=== PATIENT | male | born 1990 | race Caucasian/White ===

== ENCOUNTER 2017-05-06 11:31 | Emergency (ER) | payer MEDICAID ==
[~2017-05-06] VITALS: Ht 167.6 cm; Wt 63.6 kg
[2017-05-06 12:08] VITALS: BP 160/64
[2017-05-06 12:08] LABS: GLUCOSE,POINT OF CARE 118 MG/DL (70-110)
[2017-05-06] MEDS ORDERED: VENL50TA44 PO (12:08)
[2017-05-06] MEDS ORDERED: OLAN10TA3 PO (12:08)
[2017-05-06] MEDS ORDERED: ACETAMINOPHEN 325 MG TABLET PO ONE (12:15)
== END 2017-05-06 12:27 | disposition home or self-care (01) ==
LOC: EMS 11:32
DX: R23.8 Other skin changes (principal); F31.9 Bipolar disorder, unspecified; M79.671 Pain in right foot; M79.672 Pain in left foot; F41.9 Anxiety disorder, unspecified; I10 Essential (primary) hypertension; F15.10 Other stimulant abuse, uncomplicated; F12.10 Cannabis abuse, uncomplicated; F17.210 Nicotine dependence, cigarettes, uncomplicated; Z59.0 Homelessness
CPT/HCPCS: 82962; 99282; 99283; 99406

== ENCOUNTER 2018-06-30 20:57 | Emergency (ER) | payer OTHER ==
[~2018-06-30] VITALS: Ht 167.6 cm; Wt 61.4 kg
[~2018-06-30 20:57] MED LIST: BUPR100SR PO; OLAN10TA3 PO; VENL50TA44 PO
[2018-06-30 21:03] VITALS: BP 141/93
[2018-06-30] MEDS ORDERED: OLANZapine 5 MG TABLET PO ONE (21:30)
== END 2018-06-30 21:56 | disposition home or self-care (01) ==
LOC: EMS 20:59
DX: S62.102A Fracture of unspecified carpal bone, left wrist, initial encounter for closed fracture (principal); F19.90 Other psychoactive substance use, unspecified, uncomplicated; F41.9 Anxiety disorder, unspecified; F31.9 Bipolar disorder, unspecified; F17.210 Nicotine dependence, cigarettes, uncomplicated; F12.90 Cannabis use, unspecified, uncomplicated; V00.131A Fall from skateboard, initial encounter; Y93.89 Activity, other specified; Y92.89 Other specified places as the place of occurrence of the external cause; Y99.8 Other external cause status

== ENCOUNTER 2018-06-30 23:34 | Emergency (ER) | payer OTHER ==
[~2018-06-30] VITALS: Ht 167.6 cm; Wt 61.4 kg
[2018-07-01 00:04] VITALS: BP 129/68
[2018-07-01 01:36] LABS: BASOPHILS % (AUTO) 0.9 % (0.0-2.0); EOSINOPHILS % (AUTO) 2.3 % (1.0-6.0); HEMATOCRIT 43.2 % (41-53); HEMOGLOBIN 14.7 g/dL (13.5-17.5); LYMPHOCYTES # (AUTO) 2.4 K/uL (1.0-4.8); LYMPHOCYTES % (AUTO) 22.6 % (22.0-44.0); MEAN CORPUSCULAR HGB CONC 34.1 G/dL (31.0-37.0); MEAN CORPUSCULAR VOLUME 88 fL (80-100); MONOCYTES # (AUTO) 0.8 K/uL (0.1-1.0); NEUTROPHILS # (AUTO) 7.2 K/uL (1.8-7.7); NEUTROPHILS % (AUTO) 67.2 % (40.0-70.0); PLATELET COUNT (AUTO) 340 K/uL (150-450); RED BLOOD CELL COUNT(AUTO) 4.91 MIL/uL (4.50-5.90); RED CELL DISTRIBUTION WIDTH 14.7 % (11.5-14.5)
[2018-07-01 01:43] LABS: ANION GAP 12 mmol/L (8-16); CALCIUM, TOTAL 8.9 mg/dL (8.8-10.5); CARBON DIOXIDE 26 mmol/L (22-29); CHLORIDE 102 mmol/L (98-107); CREATININE 0.72 mg/dL (0.60-1.30); GLOMERULAR FILTR. RATE CALC > 60 mL/min (>60); GLUCOSE,RANDOM 81 mg/dL (70-110); POTASSIUM 3.7 mmol/L (3.5-5.1); SODIUM SERUM 140 mmol/L (136-145); UREA NITROGEN, BLOOD 13 mg/dL (7-18)
[2018-07-01 01:49] LABS: ALANINE AMINOTRANSFERASE 85 U/L (12-78); ALKALINE PHOSPHATASE 164 U/L (46-116); ASPARTATE AMINOTRANSFERASE 40 U/L (15-37); BILIRUBIN,TOTAL 1.1 mg/dL (0.1-1.0); TOTAL PROTEIN, SERUM 7.7 g/dL (6.4-8.2)
[2018-07-01] MEDS ORDERED: LORazepam 2 MG/ML VIAL IM ONE (02:00)
== END 2018-07-01 05:44 | disposition home or self-care (01) ==
LOC: EMS 23:34
DX: F31.9 Bipolar disorder, unspecified (principal); F32.9 Major depressive disorder, single episode, unspecified; F41.9 Anxiety disorder, unspecified; F17.210 Nicotine dependence, cigarettes, uncomplicated; F12.90 Cannabis use, unspecified, uncomplicated; F19.90 Other psychoactive substance use, unspecified, uncomplicated
CPT/HCPCS: 80053; 85025; 96372; 99284; G0480; J2060

== ENCOUNTER 2018-09-29 06:06 | Inpatient (IN) | payer MEDICAID, OTHER ==
[~2018-09-29] VITALS: Ht 167.6 cm; Wt 61.5 kg
[2018-09-29 07:05] LABS: ANION GAP 10 mmol/L (8-16); CALCIUM, TOTAL 9.3 mg/dL (8.8-10.5); CARBON DIOXIDE 26 mmol/L (22-29); CHLORIDE 101 mmol/L (98-107); CREATININE 0.64 mg/dL (0.60-1.30); GLOMERULAR FILTR. RATE CALC > 60 mL/min (>60); GLUCOSE,RANDOM 93 mg/dL (70-110); POTASSIUM 3.8 mmol/L (3.5-5.1); SODIUM SERUM 137 mmol/L (136-145); UREA NITROGEN, BLOOD 14 mg/dL (7-18)
[2018-09-29 07:10] LABS: EOSINOPHILS % (AUTO) 0.8 % (1.0-6.0); HEMATOCRIT 42.7 % (41-53); HEMOGLOBIN 14.7 g/dL (13.5-17.5); LYMPHOCYTES # (AUTO) 1.4 K/uL (1.0-4.8); LYMPHOCYTES % (AUTO) 17.3 % (22.0-44.0); MEAN CORPUSCULAR HEMOGLOBIN 28.9 pg (26.0-34.0); MEAN CORPUSCULAR HGB CONC 34.5 G/dL (31.0-37.0); MEAN CORPUSCULAR VOLUME 84 fL (80-100); MONOCYTES # (AUTO) 0.7 K/uL (0.1-1.0); MONOCYTES % (AUTO) 9.1 % (2.0-9.0); NEUTROPHILS # (AUTO) 5.7 K/uL (1.8-7.7); NEUTROPHILS % (AUTO) 71.8 % (40.0-70.0); PLATELET COUNT (AUTO) 329 K/uL (150-450); RED CELL DISTRIBUTION WIDTH 15.2 % (11.5-14.5)
[2018-09-29 07:12] LABS: ALANINE AMINOTRANSFERASE 169 U/L (12-78); ALBUMIN 3.9 g/dL (3.4-5.0); ALKALINE PHOSPHATASE 138 U/L (46-116); ASPARTATE AMINOTRANSFERASE 75 U/L (15-37); BILIRUBIN,TOTAL 0.4 mg/dL (0.1-1.0); TOTAL PROTEIN, SERUM 7.5 g/dL (6.4-8.2)
[2018-09-29] MEDS ORDERED: ZOLPIDEM TARTRATE 10 MG TABLET PO PRN (08:15)
[2018-09-29] MEDS ORDERED: HALOPERIDOL 5 MG TABLET PO PRN (08:15)
[2018-09-29 08:26] LABS: AMPHET/METH SCREEN,URINE POSITIVE (NEGATIVE); BARBITURATE SCREEN, URINE NEGATIVE (NEGATIVE); BENZODIAZEPINES SCREEN,URINE NEGATIVE (NEGATIVE); CANNABINOID SCREEN,URINE POSITIVE (NEGATIVE); COCAINE SCREEN,URINE NEGATIVE (NEGATIVE); METHADONE SCREEN, URINE NEGATIVE (NEGATIVE); OPIATE SCREEN,URINE NEGATIVE (NEGATIVE)
[2018-09-29] MEDS ORDERED: ACETAMINOPHEN 325 MG TABLET PO PRN ×2 (08:30→11:00)
[2018-09-29] MEDS ORDERED: IBUPROFEN 400 MG TABLET PO PRN (08:30)
[2018-09-29 08:32] LABS: PHENCYCLIDINE SCREEN,URINE NEGATIVE (NEGATIVE)
[2018-09-29 09:20] LABS: APPEARANCE,URINE CLEAR (CLEAR); BILIRUBIN,URINE NEGATIVE (NEGATIVE); GLUCOSE, URINE (UA) NEGATIVE (NEGATIVE); KETONES,URINE NEGATIVE (NEGATIVE); LEUKOCYTE ESTERASE ,URINE NEGATIVE (NEGATIVE); NITRATE,URINE NEGATIVE (NEGATIVE); OCCULT BLOOD,URINE NEGATIVE (NEGATIVE); PROTEIN,URINE NEGATIVE (NEGATIVE); UROBILINOGEN,URINE 0.2 mg/dL (<=1.0)
[2018-09-29] MEDS ORDERED: GuaiFENesin/D-METHORPHAN [SUGAR-FREE] 200-20MG/10 ML SYRUP UDCUP PO PRN (11:00)
[2018-09-29] MEDS ORDERED: MAGNESIUM HYDROXIDE SUSPENSION 30 ML UDCUP PO PRN (11:00)
[2018-09-29] MEDS ORDERED: CloNIDine HCL 0.1 MG TABLET PO PRN (11:00)
[2018-09-29] MEDS ORDERED: MAG HYDROX/AL HYDROX/SIMETH ES 30 ML SUSPENSION UDCUP PO PRN (11:00)
[2018-09-29] MEDS ORDERED: ONDANSETRON HCL 4 MG TABLET PO PRN (11:00)
[2018-09-29] MEDS ORDERED: LOPERAMIDE HCL 2 MG CAPSULE PO PRN (11:00)
[2018-09-29] MEDS ORDERED: ALBUTEROL SULFATE HFA 90 MCG/PUFF 8 GM INHALER IH PRN (11:00)
[2018-09-29] MEDS ORDERED: NICOTINE 14 MG/24 HOUR PATCH TD SCH (11:00)
[2018-09-29] MEDS ORDERED: DOCUSATE SODIUM 100 MG CAPSULE PO PRN (11:00)
[2018-09-29] MEDS ORDERED: PETROLATUM,WHITE 28 GM JELLY TP PRN (11:00)
[2018-09-29 11:02] VITALS: BP 134/81
[2018-09-29 17:00] VITALS: BP 144/78
[2018-09-29] MEDS: OLANZapine 7.5 MG TABLET PO SCH (20:13)
[2018-09-30 06:43] LABS: EOSINOPHILS % (AUTO) 3.5 % (1.0-6.0); HEMATOCRIT 40.9 % (41-53); HEMOGLOBIN 13.7 g/dL (13.5-17.5); LYMPHOCYTES # (AUTO) 1.6 K/uL (1.0-4.8); LYMPHOCYTES % (AUTO) 28.1 % (22.0-44.0); MEAN CORPUSCULAR HEMOGLOBIN 28.3 pg (26.0-34.0); MEAN CORPUSCULAR HGB CONC 33.5 G/dL (31.0-37.0); MEAN CORPUSCULAR VOLUME 84 fL (80-100); MONOCYTES # (AUTO) 0.6 K/uL (0.1-1.0); MONOCYTES % (AUTO) 9.9 % (2.0-9.0); NEUTROPHILS # (AUTO) 3.3 K/uL (1.8-7.7); NEUTROPHILS % (AUTO) 57.5 % (40.0-70.0); PLATELET COUNT (AUTO) 289 K/uL (150-450); RED BLOOD CELL COUNT(AUTO) 4.84 MIL/uL (4.50-5.90); RED CELL DISTRIBUTION WIDTH 15.2 % (11.5-14.5)
[2018-09-30 06:59] LABS: HEMOGLOBIN A1C 5.5 % (4.5-6.2)
[2018-09-30 07:07] LABS: ALANINE AMINOTRANSFERASE 125 U/L (12-78); ALBUMIN 3.1 g/dL (3.4-5.0); ALKALINE PHOSPHATASE 122 U/L (46-116); ANION GAP 10 mmol/L (8-16); ASPARTATE AMINOTRANSFERASE 48 U/L (15-37); BILIRUBIN,TOTAL 0.4 mg/dL (0.1-1.0); CALCIUM, TOTAL 8.5 mg/dL (8.8-10.5); CARBON DIOXIDE 24 mmol/L (22-29); CHLORIDE 106 mmol/L (98-107); CHOL/HDL RATIO 3.8 (4.2-7.3); CHOLESTEROL 139 mg/dL (131-200); CREATININE 0.59 mg/dL (0.60-1.30); GLOMERULAR FILTR. RATE CALC > 60 mL/min (>60); GLUCOSE,RANDOM 82 mg/dL (70-110); HDL CHOLESTEROL 37 mg/dL (40-60); LDL CHOL (CALC.) 96 mg/dL (0-130); POTASSIUM 3.9 mmol/L (3.5-5.1); SODIUM SERUM 140 mmol/L (136-145); THYROID STIMULATING HORMONE 1.05 uIU/mL (0.36-3.74); TOTAL PROTEIN, SERUM 6.3 g/dL (6.4-8.2); TRIGLYCERIDES 28 mg/dL (15-150); UREA NITROGEN, BLOOD 16 mg/dL (7-18)
[2018-09-30] MEDS: BuPROPion HCL XL 150 MG ER TABLET PO SCH (09:28)
[2018-09-30] MEDS ORDERED: NICOTINE 14 MG/24 HOUR PATCH TD SCH (09:32)
[2018-09-30 09:38] VITALS: BP 121/81
[2018-09-30] MEDS: LORazepam 2 MG TABLET PO PRN (16:56)
[2018-09-30 16:58] VITALS: BP 119/75
[2018-09-30] MEDS: OLANZapine 7.5 MG TABLET PO SCH (20:20)
[2018-10-01 08:05] VITALS: BP 127/73
[2018-10-01] MEDS: NICOTINE 14 MG/24 HOUR PATCH TD SCH (09:00)
[2018-10-01] MEDS: BuPROPion HCL XL 150 MG ER TABLET PO SCH (09:46)
[2018-10-01 16:26] VITALS: BP 117/78
[2018-10-01] MEDS: LORazepam 2 MG TABLET PO PRN (16:32)
[2018-10-01] MEDS: OLANZapine 10 MG TABLET PO SCH (20:09)
[2018-10-02 00:50] VITALS: BP 89/51
[2018-10-02 08:30] VITALS: BP 91/53
[2018-10-02] MEDS: NICOTINE 14 MG/24 HOUR PATCH TD SCH (09:00)
[2018-10-02] MEDS: BuPROPion HCL XL 150 MG ER TABLET PO SCH (09:26)
[2018-10-02 16:28] VITALS: BP 117/77
[2018-10-02] MEDS: OLANZapine 10 MG TABLET PO SCH (20:31)
[2018-10-02 20:35] VITALS: BP 118/86
[2018-10-02] MEDS: IBUPROFEN 400 MG TABLET PO PRN (20:41)
[2018-10-03] VITALS (8 sets, daily range): BP systolic 101–137; BP diastolic 61–94
[2018-10-03] MEDS: NICOTINE 14 MG/24 HOUR PATCH TD SCH (09:00)
[2018-10-03] MEDS: BuPROPion HCL XL 150 MG ER TABLET PO SCH (10:09)
[2018-10-03] MEDS ORDERED: CloNIDine HCL 0.1 MG TABLET PO PRN (12:30)
[2018-10-03] MEDS ORDERED: IBUPROFEN 600 MG TABLET PO PRN (12:30)
[2018-10-03] MEDS: CloNIDine HCL 0.1 MG TABLET PO SCH ×2 (16:04→21:32)
[2018-10-03] MEDS: OLANZapine 10 MG TABLET PO SCH (20:08)
[2018-10-03] MEDS: IBUPROFEN 400 MG TABLET PO PRN (20:16)
[2018-10-04] VITALS (11 sets, daily range): BP systolic 100–126; BP diastolic 61–89
[2018-10-04] MEDS: CloNIDine HCL 0.1 MG TABLET PO SCH ×4 (06:24→21:10)
[2018-10-04] MEDS: BuPROPion HCL XL 150 MG ER TABLET PO SCH (09:29)
[2018-10-04] MEDS: NICOTINE 14 MG/24 HOUR PATCH TD SCH (09:31)
[2018-10-04] MEDS: OLANZapine 10 MG TABLET PO SCH (20:00)
[2018-10-05] MEDS: CloNIDine HCL 0.1 MG TABLET PO SCH ×4 (06:19→21:02)
[2018-10-05] MEDS: BuPROPion HCL XL 150 MG ER TABLET PO SCH (08:52)
[2018-10-05] MEDS: NICOTINE 14 MG/24 HOUR PATCH TD SCH (08:57)
[2018-10-05 16:13] VITALS: BP 102/64
[2018-10-05] MEDS: OLANZapine 10 MG TABLET PO SCH (21:02)
[2018-10-05 21:03] VITALS: BP 119/74
[2018-10-06] MEDS: CloNIDine HCL 0.1 MG TABLET PO SCH ×4 (06:00→16:04)
[2018-10-06 08:54] VITALS: BP 148/72
[2018-10-06] MEDS: BuPROPion HCL XL 150 MG ER TABLET PO SCH (08:59)
[2018-10-06] MEDS: NICOTINE 14 MG/24 HOUR PATCH TD SCH (09:01)
[2018-10-06] MEDS ORDERED: CLON-570 PO (09:57)
[2018-10-06 12:17] VITALS: BP 108/68
[2018-10-06 16:46] VITALS: BP 117/79
== END 2018-10-06 17:45 | disposition home or self-care (01) | DRG 750 ==
LOC: EMS 06:08 → 3EI 08:39
PROVIDERS: ADMIT Psychiatry & Neurology Psychiatry; ATTEND Psychiatry & Neurology Psychiatry
DX: F25.1 Schizoaffective disorder, depressive type (principal); R45.851 Suicidal ideations; F70 Mild intellectual disabilities; F17.210 Nicotine dependence, cigarettes, uncomplicated; F12.90 Cannabis use, unspecified, uncomplicated; F41.9 Anxiety disorder, unspecified; F10.10 Alcohol abuse, uncomplicated; F19.10 Other psychoactive substance abuse, uncomplicated; R45.87 Impulsiveness; R19.7 Diarrhea, unspecified; R45.1 Restlessness and agitation; F15.10 Other stimulant abuse, uncomplicated; F11.90 Opioid use, unspecified, uncomplicated; Z91.19 Patient's noncompliance with other medical treatment and regimen; Z71.6 Tobacco abuse counseling; Z91.5 Personal history of self-harm; Z71.89 Other specified counseling; Z59.0 Homelessness
CPT/HCPCS: 80074; 83036; 84443; G0480

== ENCOUNTER 2018-11-07 21:01 | Emergency (ER) | payer MEDICAID, OTHER ==
[~2018-11-07] VITALS: Ht 165.1 cm; Wt 69.1 kg
[~2018-11-07 21:01] MED LIST changes: -VENL50TA44 PO
[2018-11-07] MEDS ORDERED: METOPROLOL SUCCINATE 50 MG ER TABLET PO ONE (23:30)
[2018-11-08 03:40] VITALS: BP 123/67
== END 2018-11-08 03:42 | disposition home or self-care (01) ==
LOC: EMS 21:01
DX: F15.10 Other stimulant abuse, uncomplicated (principal); F41.9 Anxiety disorder, unspecified; F31.9 Bipolar disorder, unspecified; F17.210 Nicotine dependence, cigarettes, uncomplicated; F12.90 Cannabis use, unspecified, uncomplicated; Z79.899 Other long term (current) drug therapy

== ENCOUNTER 2018-11-25 17:45 | Inpatient (IN) | payer MEDICAID, OTHER ==
[~2018-11-25] VITALS: Ht 165.1 cm; Wt 61.9 kg
[2018-11-25] MEDS ORDERED: QUET100T PO (22:32)
[2018-11-25 22:33] LABS: BASOPHILS % (AUTO) 0.8 % (0.0-2.0); EOSINOPHILS % (AUTO) 2.1 % (1.0-6.0); HEMATOCRIT 41.2 % (41-53); HEMOGLOBIN 14.3 g/dL (13.5-17.5); LYMPHOCYTES # (AUTO) 1.9 K/uL (1.0-4.8); LYMPHOCYTES % (AUTO) 17.4 % (22.0-44.0); MEAN CORPUSCULAR HEMOGLOBIN 29.2 pg (26.0-34.0); MEAN CORPUSCULAR HGB CONC 34.8 G/dL (31.0-37.0); MEAN CORPUSCULAR VOLUME 84 fL (80-100); MONOCYTES # (AUTO) 0.8 K/uL (0.1-1.0); MONOCYTES % (AUTO) 7.5 % (2.0-9.0); NEUTROPHILS # (AUTO) 7.8 K/uL (1.8-7.7); NEUTROPHILS % (AUTO) 72.2 % (40.0-70.0); PLATELET COUNT (AUTO) 448 K/uL (150-450); RED BLOOD CELL COUNT(AUTO) 4.91 MIL/uL (4.50-5.90); RED CELL DISTRIBUTION WIDTH 14.6 % (11.5-14.5)
[2018-11-25 22:44] LABS: AMPHET/METH SCREEN,URINE POSITIVE (NEGATIVE); BARBITURATE SCREEN, URINE NEGATIVE (NEGATIVE); BENZODIAZEPINES SCREEN,URINE NEGATIVE (NEGATIVE); CANNABINOID SCREEN,URINE POSITIVE (NEGATIVE); COCAINE SCREEN,URINE NEGATIVE (NEGATIVE); METHADONE SCREEN, URINE NEGATIVE (NEGATIVE); OPIATE SCREEN,URINE NEGATIVE (NEGATIVE)
[2018-11-25 22:45] LABS: PHENCYCLIDINE SCREEN,URINE NEGATIVE (NEGATIVE)
[2018-11-25 22:46] LABS: ANION GAP 12 mmol/L (8-16); CALCIUM, TOTAL 9.6 mg/dL (8.8-10.5); CARBON DIOXIDE 27 mmol/L (22-29); CHLORIDE 102 mmol/L (98-107); CREATININE 0.78 mg/dL (0.60-1.30); GLOMERULAR FILTR. RATE CALC > 60 mL/min (>60); GLUCOSE,RANDOM 104 mg/dL (70-110); POTASSIUM 3.3 mmol/L (3.5-5.1); SODIUM SERUM 141 mmol/L (136-145); UREA NITROGEN, BLOOD 5 mg/dL (7-18)
[2018-11-25 22:52] LABS: ALANINE AMINOTRANSFERASE 45 U/L (12-78); ALBUMIN 4.1 g/dL (3.4-5.0); ALKALINE PHOSPHATASE 217 U/L (46-116); ASPARTATE AMINOTRANSFERASE 22 U/L (15-37); BILIRUBIN,TOTAL 0.4 mg/dL (0.1-1.0); TOTAL PROTEIN, SERUM 8.4 g/dL (6.4-8.2)
[2018-11-25] MEDS ORDERED: POTASSIUM CHLORIDE 20 MEQ ER TABLET PO ONE (23:30)
[2018-11-26] MEDS ORDERED: NAPROXEN 250 MG TABLET PO ONE
[2018-11-26] MEDS ORDERED: LORazepam 1 MG TABLET PO ONE (01:15)
[2018-11-26] MEDS: HALOPERIDOL 5 MG TABLET PO PRN (03:48)
[2018-11-26] MEDS: LORazepam 2 MG TABLET PO PRN ×2 (03:48→19:11)
[2018-11-26] MEDS ORDERED: MAG HYDROX/AL HYDROX/SIMETH ES 30 ML SUSPENSION UDCUP PO PRN (10:15)
[2018-11-26] MEDS ORDERED: ACETAMINOPHEN 325 MG TABLET PO PRN (10:15)
[2018-11-26] MEDS ORDERED: LOPERAMIDE HCL 2 MG CAPSULE PO PRN (10:15)
[2018-11-26] MEDS ORDERED: ALBUTEROL SULFATE HFA 90 MCG/PUFF 8 GM INHALER IH PRN (10:15)
[2018-11-26] MEDS ORDERED: PETROLATUM,WHITE 28 GM JELLY TP PRN (10:15)
[2018-11-26] MEDS ORDERED: DOCUSATE SODIUM 100 MG CAPSULE PO PRN (10:15)
[2018-11-26] MEDS ORDERED: ONDANSETRON HCL 4 MG TABLET PO PRN (10:15)
[2018-11-26] MEDS ORDERED: GuaiFENesin/D-METHORPHAN [SUGAR-FREE] 200-20MG/10 ML SYRUP UDCUP PO PRN (10:15)
[2018-11-26] MEDS ORDERED: MAGNESIUM HYDROXIDE SUSPENSION 30 ML UDCUP PO PRN (10:15)
[2018-11-26] MEDS ORDERED: CloNIDine HCL 0.1 MG TABLET PO PRN (10:15)
[2018-11-26] MEDS: QUEtiapine FUMARATE 100 MG TABLET PO SCH (10:22)
[2018-11-26] MEDS: BuPROPion HCL 100 MG SR TABLET PO SCH (10:44)
[2018-11-26 19:10] VITALS: BP 127/77
[2018-11-26] MEDS: IBUPROFEN 400 MG TABLET PO PRN (19:11)
[2018-11-26] MEDS: ZOLPIDEM TARTRATE 10 MG TABLET PO PRN (22:20)
[2018-11-27 07:14] LABS: CHOL/HDL RATIO 3.2 (4.2-7.3); POTASSIUM 4.1 mmol/L (3.5-5.1)
[2018-11-27] MEDS: QUEtiapine FUMARATE 100 MG TABLET PO SCH (08:37)
[2018-11-27] MEDS: BuPROPion HCL 100 MG SR TABLET PO SCH (08:37)
[2018-11-27 09:15] VITALS: BP 121/71
[2018-11-27 16:23] VITALS: BP 134/94
[2018-11-27] MEDS: IBUPROFEN 400 MG TABLET PO PRN (16:23)
[2018-11-28 00:38] VITALS: BP 134/78
[2018-11-28] MEDS: IBUPROFEN 400 MG TABLET PO PRN (00:38)
[2018-11-28 08:00] VITALS: BP 119/70
[2018-11-28] MEDS: BuPROPion HCL 100 MG SR TABLET PO SCH (08:38)
[2018-11-28] MEDS: QUEtiapine FUMARATE 100 MG TABLET PO SCH (08:38)
[2018-11-28] MEDS: LORazepam 2 MG TABLET PO PRN (11:37)
[2018-11-28] MEDS: HALOPERIDOL 5 MG TABLET PO PRN (11:37)
[2018-11-28 16:30] VITALS: BP 116/68
[2018-11-28 20:52] VITALS: BP 128/69
[2018-11-29 02:35] VITALS: BP 118/87
[2018-11-29] MEDS: ZOLPIDEM TARTRATE 10 MG TABLET PO PRN ×2 (02:38→20:11)
[2018-11-29] MEDS: IBUPROFEN 400 MG TABLET PO PRN (02:39)
[2018-11-29] MEDS: HALOPERIDOL 5 MG TABLET PO PRN (07:57)
[2018-11-29] MEDS: LORazepam 2 MG TABLET PO PRN (07:57)
[2018-11-29] MEDS: QUEtiapine FUMARATE 100 MG TABLET PO SCH (07:57)
[2018-11-29] MEDS: BuPROPion HCL 100 MG SR TABLET PO SCH (07:58)
[2018-11-29 08:02] VITALS: BP 133/77
[2018-11-29 16:00] VITALS: BP 114/79
[2018-11-30 02:05] VITALS: BP 125/70
[2018-11-30] MEDS: LORazepam 2 MG TABLET PO PRN ×2 (02:06→07:54)
[2018-11-30] MEDS: IBUPROFEN 400 MG TABLET PO PRN (02:07)
[2018-11-30] MEDS: HALOPERIDOL 5 MG TABLET PO PRN (07:54)
[2018-11-30] MEDS: QUEtiapine FUMARATE 100 MG TABLET PO SCH (07:54)
[2018-11-30] MEDS: BuPROPion HCL 100 MG SR TABLET PO SCH (07:55)
[2018-11-30 08:02] VITALS: BP 140/82
[2018-11-30 18:36] VITALS: BP 133/68
[2018-11-30] MEDS: ZOLPIDEM TARTRATE 10 MG TABLET PO PRN (21:17)
[2018-12-01] MEDS: IBUPROFEN 400 MG TABLET PO PRN ×3 (01:16→18:17)
[2018-12-01 05:50] VITALS: BP 121/72
[2018-12-01 08:01] VITALS: BP 140/80
[2018-12-01] MEDS: BuPROPion HCL 100 MG SR TABLET PO SCH (08:01)
[2018-12-01] MEDS: QUEtiapine FUMARATE 100 MG TABLET PO SCH (08:01)
[2018-12-01] MEDS: NICOTINE 14 MG/24 HOUR PATCH TD PRN (08:02)
[2018-12-01 18:18] VITALS: BP 134/79
[2018-12-01] MEDS: ZOLPIDEM TARTRATE 10 MG TABLET PO PRN (22:02)
[2018-12-02] MEDS: IBUPROFEN 400 MG TABLET PO PRN ×2 (03:09→07:46)
[2018-12-02 03:10] VITALS: BP 127/75
[2018-12-02] MEDS: QUEtiapine FUMARATE 100 MG TABLET PO SCH (07:46)
[2018-12-02] MEDS: BuPROPion HCL 100 MG SR TABLET PO SCH (07:46)
[2018-12-02 08:00] VITALS: BP 121/84
[2018-12-02] MEDS: NICOTINE 14 MG/24 HOUR PATCH TD PRN (08:10)
[2018-12-02] MEDS ORDERED: BUPR100SR PO (11:09)
[2018-12-02] MEDS ORDERED: QUET100T33 PO (11:09)
== END 2018-12-02 15:10 | disposition home or self-care (01) | DRG 750 ==
LOC: EMS 17:46 → 3EC 11-26 03:16
PROVIDERS: ADMIT Psychiatry & Neurology Child & Adolescent Psychiatry; ATTEND Psychiatry & Neurology Child & Adolescent Psychiatry
DX: F25.0 Schizoaffective disorder, bipolar type (principal); R45.851 Suicidal ideations; Z59.0 Homelessness; E87.6 Hypokalemia; F10.10 Alcohol abuse, uncomplicated; F12.10 Cannabis abuse, uncomplicated; F15.10 Other stimulant abuse, uncomplicated; F41.9 Anxiety disorder, unspecified; Z79.899 Other long term (current) drug therapy; F17.210 Nicotine dependence, cigarettes, uncomplicated
CPT/HCPCS: 84132; G0480

== ENCOUNTER 2019-04-06 09:29 | Inpatient (IN) | payer MEDICAID, OTHER ==
[~2019-04-06] VITALS: Ht 165.1 cm; Wt 61.2 kg
[~2019-04-06 09:29] MED LIST changes: -OLAN10TA3 PO; +QUET100T33 PO
[2019-04-06] MEDS ORDERED: ARIP5TAB8 PO (09:47)
[2019-04-06] MEDS ORDERED: OLAN5TAB2 PO (09:47)
[2019-04-06] MEDS ORDERED: BUPR1FIL3 SL (09:47)
[2019-04-06 10:17] LABS: BASOPHILS % (AUTO) 0.9 % (0.0-2.0); EOSINOPHILS % (AUTO) 0.7 % (1.0-6.0); HEMATOCRIT 42.5 % (41-53); HEMOGLOBIN 14.1 g/dL (13.5-17.5); LYMPHOCYTES # (AUTO) 1.7 K/uL (1.0-4.8); LYMPHOCYTES % (AUTO) 20.6 % (22.0-44.0); MEAN CORPUSCULAR HEMOGLOBIN 29.5 pg (26.0-34.0); MEAN CORPUSCULAR HGB CONC 33.1 G/dL (31.0-37.0); MEAN CORPUSCULAR VOLUME 89 fL (80-100); MONOCYTES # (AUTO) 0.5 K/uL (0.1-1.0); MONOCYTES % (AUTO) 5.6 % (2.0-9.0); NEUTROPHILS # (AUTO) 5.8 K/uL (1.8-7.7); NEUTROPHILS % (AUTO) 72.2 % (40.0-70.0); PLATELET COUNT (AUTO) 285 K/uL (150-450); RED BLOOD CELL COUNT(AUTO) 4.76 MIL/uL (4.50-5.90); RED CELL DISTRIBUTION WIDTH 14.6 % (11.5-14.5)
[2019-04-06 10:31] LABS: ANION GAP 7 mmol/L (8-16); CALCIUM, TOTAL 8.5 mg/dL (8.8-10.5); CARBON DIOXIDE 26 mmol/L (22-29); CHLORIDE 105 mmol/L (98-107); CREATININE 0.73 mg/dL (0.60-1.30); GLOMERULAR FILTR. RATE CALC > 60 mL/min (>60); GLUCOSE,RANDOM 99 mg/dL (70-110); SODIUM SERUM 138 mmol/L (136-145); UREA NITROGEN, BLOOD 13 mg/dL (7-18)
[2019-04-06 10:37] LABS: ALANINE AMINOTRANSFERASE 26 U/L (12-78); ALBUMIN 3.7 g/dL (3.4-5.0); ALKALINE PHOSPHATASE 144 U/L (46-116); ASPARTATE AMINOTRANSFERASE 13 U/L (15-37); BILIRUBIN,TOTAL 0.2 mg/dL (0.1-1.0); TOTAL PROTEIN, SERUM 6.9 g/dL (6.4-8.2)
[2019-04-06] MEDS ORDERED: HALOPERIDOL 5 MG TABLET PO PRN (13:15)
[2019-04-06] MEDS ORDERED: ZOLPIDEM TARTRATE 10 MG TABLET PO PRN (13:15)
[2019-04-06 14:08] LABS: AMPHET/METH SCREEN,URINE POSITIVE (NEGATIVE); BARBITURATE SCREEN, URINE NEGATIVE (NEGATIVE); BENZODIAZEPINES SCREEN,URINE NEGATIVE (NEGATIVE); CANNABINOID SCREEN,URINE POSITIVE (NEGATIVE); COCAINE SCREEN,URINE NEGATIVE (NEGATIVE); METHADONE SCREEN, URINE NEGATIVE (NEGATIVE); OPIATE SCREEN,URINE NEGATIVE (NEGATIVE); PHENCYCLIDINE SCREEN,URINE NEGATIVE (NEGATIVE)
[2019-04-06 16:00] VITALS: BP 110/65
[2019-04-06] MEDS: LORazepam 2 MG TABLET PO PRN (19:41)
[2019-04-06] MEDS ORDERED: NICOTINE 14 MG/24 HOUR PATCH TD PRN (20:45)
[2019-04-06] MEDS ORDERED: CloNIDine HCL 0.1 MG TABLET PO PRN (20:45)
[2019-04-06] MEDS ORDERED: ONDANSETRON HCL 4 MG TABLET PO PRN (20:45)
[2019-04-06] MEDS ORDERED: ALBUTEROL SULFATE HFA 90 MCG/PUFF 8 GM INHALER IH PRN (20:45)
[2019-04-06] MEDS ORDERED: DOCUSATE SODIUM 100 MG CAPSULE PO PRN (20:45)
[2019-04-06] MEDS ORDERED: MAG HYDROX/AL HYDROX/SIMETH ES 30 ML SUSPENSION UDCUP PO PRN (20:45)
[2019-04-06] MEDS ORDERED: MAGNESIUM HYDROXIDE SUSPENSION 30 ML UDCUP PO PRN (20:45)
[2019-04-06] MEDS ORDERED: ACETAMINOPHEN 325 MG TABLET PO PRN (20:45)
[2019-04-06] MEDS ORDERED: LOPERAMIDE HCL 2 MG CAPSULE PO PRN (20:45)
[2019-04-06] MEDS ORDERED: PETROLATUM,WHITE 28 GM JELLY TP PRN (20:45)
[2019-04-06] MEDS ORDERED: GuaiFENesin/D-METHORPHAN [SUGAR-FREE] 200-20MG/10 ML SYRUP UDCUP PO PRN (20:45)
[2019-04-07] VITALS (12 sets, daily range): BP systolic 106–140; BP diastolic 55–75
[2019-04-07] MEDS ORDERED: PNEUMOCOCCAL VACCINE POLYVALENT 0.5 ML VIAL [PPSV23] IM ONE (06:00)
[2019-04-07 08:35] LABS: CHOL/HDL RATIO 3.1 (4.2-7.3); FREE T4 (FREE THYROXINE) 1.02 ng/dL (0.76-1.46); THYROID STIMULATING HORMONE 0.21 uIU/mL (0.36-3.74)
[2019-04-07] MEDS ORDERED: CloNIDine HCL 0.1 MG TABLET PO PRN (10:45)
[2019-04-07] MEDS ORDERED: MAG HYDROX/AL HYDROX/SIMETH ES 30 ML SUSPENSION UDCUP PO PRN (10:45)
[2019-04-07] MEDS ORDERED: HydrOXYzine PAMOATE 50 MG CAPSULE PO PRN (10:45)
[2019-04-07] MEDS ORDERED: IBUPROFEN 600 MG TABLET PO PRN (10:45)
[2019-04-07] MEDS: CloNIDine HCL 0.1 MG TABLET PO SCH ×4 (11:33→22:00)
[2019-04-07] MEDS: LORazepam 2 MG TABLET PO PRN ×2 (14:16→18:24)
[2019-04-07] MEDS: IBUPROFEN 400 MG TABLET PO PRN (18:24)
[2019-04-07] MEDS: OLANZapine 10 MG TABLET PO SCH (20:14)
[2019-04-08] MEDS: CloNIDine HCL 0.1 MG TABLET PO SCH ×4 (06:00→22:00)
[2019-04-08 06:33] VITALS: BP 110/68
[2019-04-08 08:32] VITALS: BP 109/60
[2019-04-08 08:33] VITALS: BP 109/60
[2019-04-08] MEDS: FOLIC ACID 1 MG TABLET PO SCH (08:36)
[2019-04-08] MEDS: MULTIVITAMINS WITH MINERALS, THERAPEUTIC TABLET PO SCH (08:36)
[2019-04-08] MEDS: BuPROPion HCL XL 150 MG ER TABLET PO SCH (08:36)
[2019-04-08] MEDS: THIAMINE HCL 100 MG TABLET PO SCH (08:36)
[2019-04-08 12:14] VITALS: BP 111/88
[2019-04-08 16:00] VITALS: BP 115/72
[2019-04-08] MEDS: OLANZapine 10 MG TABLET PO SCH (20:14)
[2019-04-08 22:09] VITALS: BP 95/75
[2019-04-09 00:05] VITALS: BP 121/68
[2019-04-09] MEDS: CloNIDine HCL 0.1 MG TABLET PO SCH ×4 (06:21→20:33)
[2019-04-09 08:32] VITALS: BP 113/60
[2019-04-09] MEDS: MULTIVITAMINS WITH MINERALS, THERAPEUTIC TABLET PO SCH (08:41)
[2019-04-09] MEDS: THIAMINE HCL 100 MG TABLET PO SCH (08:41)
[2019-04-09] MEDS: BuPROPion HCL XL 150 MG ER TABLET PO SCH (08:41)
[2019-04-09] MEDS: FOLIC ACID 1 MG TABLET PO SCH (08:41)
[2019-04-09 12:45] VITALS: BP 111/77
[2019-04-09 16:00] VITALS: BP 113/69
[2019-04-09] MEDS: OLANZapine 10 MG TABLET PO SCH (20:33)
[2019-04-10] VITALS: BP 118/72
[2019-04-10] MEDS: CloNIDine HCL 0.1 MG TABLET PO SCH ×4 (06:45→20:54)
[2019-04-10 08:28] VITALS: BP 105/61
[2019-04-10] MEDS ORDERED: SERTRALINE HCL 50 MG TABLET PO SCH (09:00)
[2019-04-10 09:09] VITALS: BP 105/61
[2019-04-10] MEDS: BuPROPion HCL XL 150 MG ER TABLET PO SCH (09:26)
[2019-04-10] MEDS: FOLIC ACID 1 MG TABLET PO SCH (09:27)
[2019-04-10] MEDS: THIAMINE HCL 100 MG TABLET PO SCH (09:27)
[2019-04-10] MEDS: MULTIVITAMINS WITH MINERALS, THERAPEUTIC TABLET PO SCH (09:27)
[2019-04-10 16:00] VITALS: BP 110/65
[2019-04-10 16:11] VITALS: BP 102/63
[2019-04-10] MEDS: OLANZapine 10 MG TABLET PO SCH (20:46)
[2019-04-11 05:51] VITALS: BP_SYST 104; BP_DIAS 60; BP_DIAS 70
[2019-04-11 05:52] VITALS: BP 104/60
[2019-04-11] MEDS: CloNIDine HCL 0.1 MG TABLET PO SCH ×4 (06:15→21:55)
[2019-04-11] MEDS: MULTIVITAMINS WITH MINERALS, THERAPEUTIC TABLET PO SCH (08:54)
[2019-04-11] MEDS: FOLIC ACID 1 MG TABLET PO SCH (08:54)
[2019-04-11] MEDS: BuPROPion HCL XL 150 MG ER TABLET PO SCH (08:54)
[2019-04-11] MEDS: THIAMINE HCL 100 MG TABLET PO SCH (08:54)
[2019-04-11 08:56] VITALS: BP 105/61
[2019-04-11] MEDS ORDERED: SERTRALINE HCL 100 MG TABLET PO SCH (09:00)
[2019-04-11 11:03] VITALS: BP 105/61
[2019-04-11 16:11] VITALS: BP_SYST 106; BP_DIAS 51; BP_DIAS 61
[2019-04-11] MEDS: OLANZapine 10 MG TABLET PO SCH (20:26)
[2019-04-11 22:38] VITALS: BP 102/72
[2019-04-11] MEDS: IBUPROFEN 400 MG TABLET PO PRN (22:38)
[2019-04-12 00:02] VITALS: BP 100/60
[2019-04-12] MEDS: CloNIDine HCL 0.1 MG TABLET PO SCH ×4 (06:09→20:41)
[2019-04-12] MEDS: BuPROPion HCL XL 150 MG ER TABLET PO SCH (08:18)
[2019-04-12] MEDS: MULTIVITAMINS WITH MINERALS, THERAPEUTIC TABLET PO SCH (08:18)
[2019-04-12] MEDS: THIAMINE HCL 100 MG TABLET PO SCH (08:18)
[2019-04-12] MEDS: FOLIC ACID 1 MG TABLET PO SCH (08:18)
[2019-04-12] MEDS: SERTRALINE HCL 100 MG TABLET PO SCH (08:19)
[2019-04-12 08:38] VITALS: BP 107/67
[2019-04-12 16:09] VITALS: BP 111/64
[2019-04-12] MEDS: OLANZapine 10 MG TABLET PO SCH (20:27)
[2019-04-13 05:31] VITALS: BP 102/61
[2019-04-13] MEDS: CloNIDine HCL 0.1 MG TABLET PO SCH ×4 (06:31→21:20)
[2019-04-13 08:24] VITALS: BP 105/66
[2019-04-13] MEDS: BuPROPion HCL XL 150 MG ER TABLET PO SCH (08:46)
[2019-04-13] MEDS: THIAMINE HCL 100 MG TABLET PO SCH (08:47)
[2019-04-13] MEDS: FOLIC ACID 1 MG TABLET PO SCH (08:47)
[2019-04-13] MEDS: MULTIVITAMINS WITH MINERALS, THERAPEUTIC TABLET PO SCH (08:47)
[2019-04-13] MEDS: SERTRALINE HCL 100 MG TABLET PO SCH (08:47)
[2019-04-13 12:12] VITALS: BP 114/72
[2019-04-13 16:08] VITALS: BP 119/78
[2019-04-13] MEDS: OLANZapine 10 MG TABLET PO SCH (20:01)
[2019-04-13 20:12] VITALS: BP 118/70
[2019-04-13] MEDS: IBUPROFEN 400 MG TABLET PO PRN (20:12)
[2019-04-13 21:12] VITALS: BP 117/70
[2019-04-14 00:22] VITALS: BP 120/81
[2019-04-14 06:25] VITALS: BP 126/83
[2019-04-14] MEDS: CloNIDine HCL 0.1 MG TABLET PO SCH (06:54)
[2019-04-14] MEDS ORDERED: BUPR-93 PO (08:09)
[2019-04-14] MEDS ORDERED: SERT100T12 PO (08:09)
[2019-04-14] MEDS ORDERED: OLAN20TA2 PO (08:09)
[2019-04-14 08:18] VITALS: BP 107/66
[2019-04-14] MEDS: BuPROPion HCL XL 150 MG ER TABLET PO SCH (08:26)
[2019-04-14] MEDS: MULTIVITAMINS WITH MINERALS, THERAPEUTIC TABLET PO SCH (08:26)
[2019-04-14] MEDS: FOLIC ACID 1 MG TABLET PO SCH (08:26)
[2019-04-14] MEDS: THIAMINE HCL 100 MG TABLET PO SCH (08:26)
[2019-04-14] MEDS: SERTRALINE HCL 100 MG TABLET PO SCH (08:26)
== END 2019-04-14 10:00 | disposition home or self-care (01) | DRG 750 ==
LOC: EMS 09:29 → B2S 15:54
PROVIDERS: ADMIT Psychiatry & Neurology Psychiatry; ATTEND Psychiatry & Neurology Psychiatry
DX: F25.1 Schizoaffective disorder, depressive type (principal); F70 Mild intellectual disabilities; R45.851 Suicidal ideations; Z91.19 Patient's noncompliance with other medical treatment and regimen; F10.10 Alcohol abuse, uncomplicated; F11.10 Opioid abuse, uncomplicated; F12.90 Cannabis use, unspecified, uncomplicated; F15.10 Other stimulant abuse, uncomplicated; F17.200 Nicotine dependence, unspecified, uncomplicated; F41.9 Anxiety disorder, unspecified; I10 Essential (primary) hypertension; F19.20 Other psychoactive substance dependence, uncomplicated; F60.2 Antisocial personality disorder; R00.0 Tachycardia, unspecified; Z59.0 Homelessness; Z91.5 Personal history of self-harm
CPT/HCPCS: 80074; 84439; 84443; G0480

== ENCOUNTER 2020-03-09 19:18 | Inpatient (IN) | payer MEDICAID ==
[~2020-03-09] VITALS: Ht 167.6 cm; Wt 67.5 kg
[~2020-03-09 19:18] MED LIST changes: +BUPR-93 PO; -BUPR100SR PO; +OLAN20TA2 PO; -QUET100T33 PO; +SERT100T12 PO
[2020-03-09 20:08] LABS: BASOPHILS % (AUTO) 0.8 % (0.0-2.0); EOSINOPHILS % (AUTO) 0.3 % (1.0-6.0); HEMOGLOBIN 14.7 g/dL (13.5-17.5); LYMPHOCYTES # (AUTO) 2.1 K/uL (1.0-4.8); LYMPHOCYTES % (AUTO) 21.3 % (22.0-44.0); MEAN CORPUSCULAR HEMOGLOBIN 30.5 pg (26.0-34.0); MEAN CORPUSCULAR VOLUME 87 fL (80-100); MONOCYTES # (AUTO) 0.5 K/uL (0.1-1.0); MONOCYTES % (AUTO) 5.2 % (2.0-9.0); NEUTROPHILS % (AUTO) 72.4 % (40.0-70.0); PLATELET COUNT (AUTO) 268 K/uL (150-450); RED BLOOD CELL COUNT(AUTO) 4.82 MIL/uL (4.50-5.90); RED CELL DISTRIBUTION WIDTH 15.5 % (11.5-14.5)
[2020-03-09 20:19] LABS: ANION GAP 10 mmol/L (8-16); CALCIUM, TOTAL 9.1 mg/dL (8.8-10.5); CARBON DIOXIDE 27 mmol/L (22-29); CHLORIDE 101 mmol/L (98-107); CREATININE 0.88 mg/dL (0.60-1.30); GLOMERULAR FILTR. RATE CALC > 60 mL/min (>60); GLUCOSE,RANDOM 101 mg/dL (70-110); POTASSIUM 3.2 mmol/L (3.5-5.1); SODIUM SERUM 138 mmol/L (136-145); UREA NITROGEN, BLOOD 4 mg/dL (7-18)
[2020-03-09 20:25] LABS: ALANINE AMINOTRANSFERASE 47 U/L (12-78); ALBUMIN 4.2 g/dL (3.4-5.0); ALKALINE PHOSPHATASE 148 U/L (46-116); ASPARTATE AMINOTRANSFERASE 18 U/L (15-37); BILIRUBIN,TOTAL 0.5 mg/dL (0.1-1.0); TOTAL PROTEIN, SERUM 7.4 g/dL (6.4-8.2)
[2020-03-09 20:32] LABS: AMPHET/METH SCREEN,URINE POSITIVE (NEGATIVE); BARBITURATE SCREEN, URINE NEGATIVE (NEGATIVE); BENZODIAZEPINES SCREEN,URINE NEGATIVE (NEGATIVE); CANNABINOID SCREEN,URINE POSITIVE (NEGATIVE); COCAINE SCREEN,URINE NEGATIVE (NEGATIVE); METHADONE SCREEN, URINE NEGATIVE (NEGATIVE); OPIATE SCREEN,URINE NEGATIVE (NEGATIVE)
[2020-03-09 20:33] LABS: PHENCYCLIDINE SCREEN,URINE NEGATIVE (NEGATIVE)
[2020-03-09] MEDS ORDERED: POTASSIUM CHLORIDE 20 MEQ ER TABLET PO ONE (23:15)
[2020-03-10] MEDS: LORazepam 2 MG TABLET PO PRN ×2 (00:19→21:21)
[2020-03-10 05:20] LABS: CHOL/HDL RATIO 2.6 (4.2-7.3); CHOLESTEROL 127 mg/dL (131-200); HDL CHOLESTEROL 49 mg/dL (40-60); LDL CHOL (CALC.) 73 mg/dL (0-130); TRIGLYCERIDES 26 mg/dL (15-150)
[2020-03-10 21:04] VITALS: BP 113/70
[2020-03-10] MEDS: ZOLPIDEM TARTRATE 10 MG TABLET PO PRN (21:21)
[2020-03-11 05:08] VITALS: BP 118/73
[2020-03-11] MEDS: NICOTINE 21 MG/24 HOUR PATCH TD SCH (07:51)
[2020-03-11] MEDS ORDERED: BACITRACIN 28 GM OINTMENT TP PRN (09:00)
[2020-03-11] MEDS ORDERED: DOCUSATE SODIUM 100 MG CAPSULE PO PRN (09:00)
[2020-03-11] MEDS ORDERED: ALBUTEROL SULFATE HFA 90 MCG/PUFF 8 GM INHALER IH PRN (09:00)
[2020-03-11] MEDS ORDERED: ACETAMINOPHEN 325 MG TABLET PO PRN (09:00)
[2020-03-11] MEDS ORDERED: MAGNESIUM HYDROXIDE SUSPENSION 30 ML UDCUP PO PRN (09:00)
[2020-03-11] MEDS ORDERED: LOPERAMIDE HCL 2 MG CAPSULE PO PRN (09:00)
[2020-03-11] MEDS ORDERED: MAG HYDROX/AL HYDROX/SIMETH ES 30 ML SUSPENSION UDCUP PO PRN (09:00)
[2020-03-11] MEDS ORDERED: BENZOCAINE/MENTHOL LOZENGE PO PRN (09:00)
[2020-03-11] MEDS ORDERED: ONDANSETRON HCL 4 MG TABLET PO PRN (09:00)
[2020-03-11] MEDS ORDERED: PETROLATUM,WHITE 28 GM JELLY TP PRN (09:00)
[2020-03-11] MEDS ORDERED: OMEPRAZOLE 20 MG CAPSULE PO PRN (09:00)
[2020-03-11] MEDS ORDERED: CloNIDine HCL 0.1 MG TABLET PO PRN (09:00)
[2020-03-11] MEDS: IBUPROFEN 600 MG TABLET PO PRN (10:25)
[2020-03-11 12:28] VITALS: BP 135/72
[2020-03-11 16:11] VITALS: BP 122/84
[2020-03-11] MEDS: LORazepam 2 MG TABLET PO PRN (20:41)
[2020-03-12 05:50] VITALS: BP 114/75
[2020-03-12 08:01] VITALS: BP 125/65
[2020-03-12] MEDS: NICOTINE 21 MG/24 HOUR PATCH TD SCH (12:05)
[2020-03-12] MEDS: IBUPROFEN 600 MG TABLET PO PRN (12:05)
[2020-03-12 16:01] VITALS: BP 113/64
[2020-03-12] MEDS: OLANZapine 5 MG RAPDIS TABLET PO PRN (16:18)
[2020-03-12] MEDS: LORazepam 2 MG TABLET PO PRN (16:18)
[2020-03-12] MEDS: OLANZapine 10 MG TABLET PO SCH (20:34)
[2020-03-12] MEDS: ZOLPIDEM TARTRATE 10 MG TABLET PO PRN (20:34)
[2020-03-13 06:13] VITALS: BP 119/71
[2020-03-13 08:02] VITALS: BP 116/64
[2020-03-13] MEDS: NICOTINE 21 MG/24 HOUR PATCH TD SCH (08:57)
[2020-03-13] MEDS: BuPROPion HCL XL 150 MG ER TABLET PO SCH (08:57)
[2020-03-13] MEDS: LORazepam 2 MG TABLET PO PRN (16:05)
[2020-03-13 16:10] VITALS: BP 112/67
[2020-03-13] MEDS: ZOLPIDEM TARTRATE 10 MG TABLET PO PRN (20:45)
[2020-03-13] MEDS: OLANZapine 10 MG TABLET PO SCH (20:45)
[2020-03-14 00:47] VITALS: BP 126/72
[2020-03-14 08:22] VITALS: BP 119/70
[2020-03-14] MEDS: BuPROPion HCL XL 150 MG ER TABLET PO SCH (08:58)
[2020-03-14] MEDS: NICOTINE 21 MG/24 HOUR PATCH TD SCH (08:58)
[2020-03-14] MEDS: LORazepam 2 MG TABLET PO PRN ×2 (12:28→16:58)
[2020-03-14 16:01] VITALS: BP 128/73
[2020-03-14] MEDS: OLANZapine 5 MG RAPDIS TABLET PO PRN (16:58)
[2020-03-14] MEDS: OLANZapine 10 MG TABLET PO SCH (20:12)
[2020-03-14] MEDS: ZOLPIDEM TARTRATE 10 MG TABLET PO PRN (20:12)
[2020-03-15 00:22] VITALS: BP 129/79
[2020-03-15] MEDS: NICOTINE 21 MG/24 HOUR PATCH TD SCH (08:13)
[2020-03-15] MEDS: BuPROPion HCL XL 150 MG ER TABLET PO SCH (08:13)
[2020-03-15 09:17] VITALS: BP 122/78
[2020-03-15] MEDS ORDERED: OLAN10TA3 PO (13:58)
[2020-03-15] MEDS ORDERED: BUPR-93 PO (13:59)
== END 2020-03-15 16:00 | disposition home or self-care (01) | DRG 750 ==
LOC: EMS 19:20 → B3A 03-10 19:10
PROVIDERS: ADMIT Psychiatry & Neurology Psychiatry; ATTEND Psychiatry & Neurology Psychiatry
DX: F25.1 Schizoaffective disorder, depressive type (principal); F15.10 Other stimulant abuse, uncomplicated; F12.10 Cannabis abuse, uncomplicated; B19.20 Unspecified viral hepatitis C without hepatic coma; I10 Essential (primary) hypertension; F17.210 Nicotine dependence, cigarettes, uncomplicated; Z79.899 Other long term (current) drug therapy
CPT/HCPCS: 84132; G0480